=== PATIENT | male | born 1980 | race Caucasian/White ===

== ENCOUNTER 2017-02-28 18:49 | Emergency (ER) | payer MEDICAID, OTHER ==
[~2017-02-28] VITALS: Ht 172.7 cm; Wt 73.2 kg
[2017-02-28] MEDS ORDERED: LORazepam 1 MG TABLET PO ONE (20:45)
[2017-02-28 21:02] VITALS: BP 127/85
== END 2017-02-28 21:05 | disposition home or self-care (01) ==
LOC: EMS 18:51
DX: F41.9 Anxiety disorder, unspecified (principal); F17.210 Nicotine dependence, cigarettes, uncomplicated
CPT/HCPCS: 99284

== ENCOUNTER 2017-04-11 11:37 | Emergency (ER) | payer OTHER ==
[~2017-04-11] VITALS: Ht 172.7 cm; Wt 91.0 kg
[2017-04-11] MEDS ORDERED: HydrOXYzine PAMOATE 50 MG CAPSULE PO ONE (12:00)
[2017-04-11 12:23] VITALS: BP 161/115
== END 2017-04-11 12:27 | disposition left against medical advice (07) ==
LOC: EMS 11:38
DX: F41.9 Anxiety disorder, unspecified (principal); S09.92XA Unspecified injury of nose, initial encounter; F32.9 Major depressive disorder, single episode, unspecified; F17.210 Nicotine dependence, cigarettes, uncomplicated; X58.XXXA Exposure to other specified factors, initial encounter; Y93.89 Activity, other specified; Y92.89 Other specified places as the place of occurrence of the external cause; Y99.8 Other external cause status
CPT/HCPCS: 99283

== ENCOUNTER 2019-01-31 09:59 | Inpatient (IN) | payer MEDICAID, OTHER ==
[~2019-01-31] VITALS: Ht 172.7 cm; Wt 66.0 kg
[2019-01-31] MEDS ORDERED: BUPR100SR PO (10:28)
[2019-01-31 10:53] LABS: BASOPHILS % (AUTO) 1.4 % (0.0-2.0); EOSINOPHILS % (AUTO) 0.9 % (1.0-6.0); HEMATOCRIT 44.2 % (41-53); HEMOGLOBIN 14.2 g/dL (13.5-17.5); LYMPHOCYTES % (AUTO) 13.4 % (22.0-44.0); MEAN CORPUSCULAR HEMOGLOBIN 26.6 pg (26.0-34.0); MEAN CORPUSCULAR HGB CONC 32.1 G/dL (31.0-37.0); MEAN CORPUSCULAR VOLUME 83 fL (80-100); MONOCYTES # (AUTO) 0.5 K/uL (0.1-1.0); NEUTROPHILS # (AUTO) 5.9 K/uL (1.8-7.7); NEUTROPHILS % (AUTO) 78.3 % (40.0-70.0); PLATELET COUNT (AUTO) 391 K/uL (150-450); RED BLOOD CELL COUNT(AUTO) 5.33 MIL/uL (4.50-5.90); RED CELL DISTRIBUTION WIDTH 14.5 % (11.5-14.5)
[2019-01-31 11:06] LABS: ANION GAP 12 mmol/L (8-16); CALCIUM, TOTAL 9.2 mg/dL (8.8-10.5); CARBON DIOXIDE 22 mmol/L (22-29); CHLORIDE 104 mmol/L (98-107); CREATININE 1.28 mg/dL (0.60-1.30); GLOMERULAR FILTR. RATE CALC > 60 mL/min (>60); GLUCOSE,RANDOM 83 mg/dL (70-110); POTASSIUM 4.1 mmol/L (3.5-5.1); SODIUM SERUM 138 mmol/L (136-145); UREA NITROGEN, BLOOD 22 mg/dL (7-18)
[2019-01-31 11:12] LABS: ALANINE AMINOTRANSFERASE 23 U/L (12-78); ALKALINE PHOSPHATASE 82 U/L (46-116); ASPARTATE AMINOTRANSFERASE 18 U/L (15-37); BILIRUBIN,TOTAL 0.6 mg/dL (0.1-1.0); TOTAL PROTEIN, SERUM 7.3 g/dL (6.4-8.2)
[2019-01-31] MEDS ORDERED: LORazepam 2 MG/ML VIAL IM ONE (11:15)
[2019-01-31] MEDS ORDERED: DiphenhydrAMINE HCL 50 MG/ML VIAL IM ONE (11:15)
[2019-01-31] MEDS ORDERED: FluPHENAZine HCL 2.5 MG/ML INJ IM ONE (11:15)
[2019-01-31] MEDS ORDERED: OLANZapine 5 MG RAPDIS TABLET PO PRN (13:45)
[2019-01-31] MEDS ORDERED: ZOLPIDEM TARTRATE 10 MG TABLET PO PRN (13:45)
[2019-01-31] MEDS ORDERED: LORazepam 2 MG TABLET PO PRN (13:45)
[2019-01-31 17:08] VITALS: BP 111/74
[2019-02-01] MEDS ORDERED: GuaiFENesin/D-METHORPHAN [SUGAR-FREE] 200-20MG/10 ML SYRUP UDCUP PO PRN (05:45)
[2019-02-01] MEDS ORDERED: MAGNESIUM HYDROXIDE SUSPENSION 30 ML UDCUP PO PRN (05:45)
[2019-02-01] MEDS ORDERED: MAG HYDROX/AL HYDROX/SIMETH ES 30 ML SUSPENSION UDCUP PO PRN (05:45)
[2019-02-01] MEDS ORDERED: LOPERAMIDE HCL 2 MG CAPSULE PO PRN (05:45)
[2019-02-01] MEDS ORDERED: NICOTINE 14 MG/24 HOUR PATCH TD PRN (05:45)
[2019-02-01] MEDS ORDERED: IBUPROFEN 400 MG TABLET PO PRN (05:45)
[2019-02-01] MEDS ORDERED: CloNIDine HCL 0.1 MG TABLET PO PRN (05:45)
[2019-02-01] MEDS ORDERED: ACETAMINOPHEN 325 MG TABLET PO PRN (05:45)
[2019-02-01] MEDS ORDERED: ALBUTEROL SULFATE HFA 90 MCG/PUFF 8 GM INHALER IH PRN (05:45)
[2019-02-01] MEDS ORDERED: ONDANSETRON HCL 4 MG TABLET PO PRN (05:45)
[2019-02-01] MEDS ORDERED: PETROLATUM,WHITE 28 GM JELLY TP PRN (05:45)
[2019-02-01] MEDS ORDERED: DOCUSATE SODIUM 100 MG CAPSULE PO PRN (05:45)
[2019-02-01] MEDS: BuPROPion HCL 100 MG SR TABLET PO SCH (11:30)
[2019-02-01] MEDS: ARIPiprazole 5 MG TABLET PO SCH (11:30)
[2019-02-02] MEDS: ARIPiprazole 5 MG TABLET PO SCH (08:27)
[2019-02-02] MEDS: BuPROPion HCL 100 MG SR TABLET PO SCH (08:27)
[2019-02-02 08:50] VITALS: BP 137/79
[2019-02-03] MEDS: ARIPiprazole 5 MG TABLET PO SCH (08:36)
[2019-02-03] MEDS: BuPROPion HCL 100 MG SR TABLET PO SCH (08:36)
[2019-02-03 11:15] VITALS: BP 113/70
[2019-02-03] MEDS ORDERED: ARIP5TAB8 PO (11:17)
== END 2019-02-03 12:45 | disposition home or self-care (01) | DRG 750 ==
LOC: EMS 10:00 → 3EC 14:37
PROVIDERS: ADMIT Psychiatry & Neurology Child & Adolescent Psychiatry; ATTEND Psychiatry & Neurology Child & Adolescent Psychiatry
DX: F20.9 Schizophrenia, unspecified (principal); F10.10 Alcohol abuse, uncomplicated; Y90.9 Presence of alcohol in blood, level not specified; F15.90 Other stimulant use, unspecified, uncomplicated; F41.9 Anxiety disorder, unspecified
CPT/HCPCS: 84443; 99291; G0480; J1200; J2060; J3490